=== PATIENT | male | born 1990 | race American Indian/Alaskan Native ===

== ENCOUNTER 2016-09-18 11:20 | Outpatient (CLI) | payer OTHER ==
--- NOTE | 2016-09-19 15:00 | PET Report ---
PET/CT:09/18/16 11:20:00 CLINICAL: Lymphoma restaging. RADIOPHARMACEUTICAL: 13.99mCi F18-FDG. COMPARISON: 04/24/16 PET/CT TECHNIQUE- Following intravenous injection of F-18 FDG and an approximately 60 minute uptake period, CT and PET images from the mid skull to the upper thighs were acquired with the patient in the fasted state. No contrast was administered. The CT protocol used for this PET CT study is designed for attenuation correction and anatomic localization of PET abnormalities. 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 Plasma glucose at the time of this test: 83g/dl. The standardized uptake values (SUV) are normalized to patient body weight and indicate the highest activity concentration (SUV max) in a given disease site. FINDINGS: Brain--Physiologic FDG uptake in the visualized regions of the brain. Neck--Physiologic FDG uptake in mucosal structures. Previously described FDG avid enlarged bilateral jugular lymph nodes have returned to normal size and there are no enlarged lymph nodes. However, a few foci of FDG uptake remain. Left submandibular FDG uptake with SUV 9.3 compared to 7.9 on the last exam. Left upper cervical FDG uptake with SUV 7.0. No abnormal FDG uptake on the right side. Chest--Physiologic FDG uptake in mediastinal blood pool and myocardium. Lungs--No abnormal uptake. No pulmonary nodule or mass. Pleura/pericardium--No abnormal uptake. Thoracic nodes--No abnormal uptake. Hepatobiliary--No abnormal uptake. Liver background SUV mean, as a reference for comparing FDG studies, is 4.5 compared to 4.2 on the last exam. No liver mass. Spleen--No abnormal uptake. The spleen is normal size and measures approximately 10 cm in length. Pancreas--No abnormal uptake. Adrenal Glands--No abnormal uptake. Kidneys/Ureters/Bladder--No abnormal uptake. Abdominopelvic Nodes--No abnormal uptake. Bowel/Peritoneum/Mesentery--No abnormal uptake. Pelvic organs--No abnormal uptake. Bones/Soft Tissues--No abnormal uptake. IMPRESSION- Resolution of lymphadenopathy but a few foci of abnormal FDG uptake remain in the left neck. No other suspicious findings.
== END 2016-09-18 11:21 | disposition home or self-care (01) ==
LOC: PET 11:20
PROVIDERS: ATTEND Internal Medicine Hematology & Oncology
DX: C85.18 Unspecified B-cell lymphoma, lymph nodes of multiple sites (principal)
CPT/HCPCS: 78815; 82962; A9552